=== PATIENT | female | born 1975 | race Caucasian/White ===

== ENCOUNTER 2018-03-19 12:31 | Emergency (ER) | payer MEDICAID ==
[~2018-03-19] VITALS: Wt 78.4 kg
[~2018-03-19 12:31] MED LIST: BACTDS PO; CEPH-443 PO; HYDR-4011 PO; IBUP-1544 PO; PERCOCET PO
[2018-03-19] MEDS ORDERED: IBUPROFEN 600 MG TAB PO ONE (14:30)
[2018-03-19] MEDS ORDERED: IBUP-1542 PO (15:05)
--- NOTE | 2018-03-27 11:45 | ERD ---
ER Documentation Chief Complaint Chief Complaint L knee pain x3d p twist motion: no overt swelling noted. amb w limp HPI Patient is a 42-year-old female who presents ER for concerns of left knee pain for the last day. Patient states that she was walking when she twisted her knee. Patient states ever since twisting her knee she has had pain. Patient states she is having trouble bearing weight to the affected extremity. Patient denies any previous falls or trauma. Patient denies any fevers or chills. ROS All systems reviewed and are negative except as per history of present illness. Medications Home Meds Active Scripts Ibuprofen* (Motrin*) 600 Mg Tab, 600 MG PO Q6, #30 TAB Prov:MANJINDER BAEZA PA-C 03/19/18 Hydrocodone/Acetaminophen ([place] 5-325 Tablet) 1 Each Tablet, 1 TAB PO Q6H PRN for PAIN, #20 TAB Prov:EDGAR BLAKE PA-C 03/04/16 Cephalexin* (Keflex*) 500 Mg Capsule, 500 MG PO QID for 7 Days, CAP Prov:MINGO RODRIGUEZ PA-C 03/11/15 Sulfamethoxazole-Trimethoprim* (Bactrim* DS) 800-160 Mg Tab, 1 TAB PO BID for 7 Days, TAB Prov:MINGO RODRIGUEZ PA-C 03/11/15 Oxycodone Hcl/Acetaminophen (Percocet) 1 Tab Tab, 2 TAB PO Q4H PRN for PAIN LEVEL 6-10, #30 TAB 0 Refills Prov:RODOLFO VARGAS MD 02/23/15 Ibuprofen* (Ibuprofen*) 800 Mg Tab, 800 MG PO Q8, #20 TAB 0 Refills Prov:RODOLFO VARGAS MD 02/23/15 Allergies Allergies: Coded Allergies: No Known Allergy (Unverified , 02/21/15) PMhx/Soc History of Surgery: Yes (2 c-sections) Anesthesia Reaction: No Hx Neurological Disorder: No Hx Respiratory Disorders: No Hx Cardiac Disorders: No Hx Psychiatric Problems: No Hx Miscellaneous Medical Probl: No Hx Alcohol Use: No Hx Substance Use: No Hx Tobacco Use: No FmHx Family History: No diabetes Physical Exam Physical Exam GENERAL: Well-developed, well-nourished male. Appears in no acute distress. HEAD: Normocephalic, atraumatic. EYES: Pupils are equally reactive bilaterally. EOMs grossly intact. No conjunctival erythema. ENT: Moist mucous membranes. No uvula deviation. No kissing tonsils. NECK: Supple. No meningismus. Normal range of motion of the neck. LUNG: Clear to auscultation bilaterally. No rhonchi, wheezing, rales or coarse breath sounds. HEART: Regular rate and rhythm. No murmurs, rubs or gallops. EXTREMITIES: Equal pulses bilaterally. No peripheral clubbing, cyanosis or edema. No unilateral leg swelling. NEUROLOGIC: Alert and oriented. Moving all four extremities without any difficulty. Normal speech. SKIN: Normal color. Warm and dry. No rashes or lesions. LLE: No deformity, erythema, ecchymosis. Mild swelling throughout the knee joint. Decreased range of motion secondary to pain. Tender palpation over the anterior and medial knee. Nontender palpation of the proximal femur. Nontender to palpation of the distal tibia/fibula. No valgus/varus instability. Sensation intact to light touch. Neurovascularly intact. (Able to plantarflex, dorsiflex, jamison foot, invert foot, raise big toe.) 2+ DP and DT pulses. Results 24 hrs Current Medications Medications Dose Sig/Patrice Start Time Status Last (Trade) Ordered Route PRN Stop Time Admin Dose Reason Admin Ibuprofen 600 mg ONCE ONCE 03/19/18 DC 03/19/18 (Motrin) PO 14:30 14:15 03/19/18 14:31 Procedures/MDM ED COURSE: The patient was stable throughout ED course. I kept the patient and/or family informed of laboratory and diagnostic imaging results throughout the ED course. DIAGNOSTIC IMAGING: Read by radiologist. Patient: ORI MORROW : 1975 Age: 42 Sex: F MR #: [id number] DOS: 03/19/18 1410 Ordering MD: MANJINDER BAEZA PA-C Location: [facility] Room/Bed: PROCEDURE: XR Knee 3 Views. CLINICAL INDICATION: Left knee pain and trauma. TECHNIQUE: AP, lateral and tunnel view of the left knee were obtained. The images reviewed on a PACS workstation. COMPARISON: None. FINDINGS: Fracture: None. Destructive lesions: None. Interosseous spaces: Moderate narrowing of the patellofemoral joint compartment. Soft tissues: Scattered heterotopic subcutaneous soft tissue calcifications over the proximal lower leg. Other: None. IMPRESSION: Moderate osteoarthritis of the patellofemoral joint compartment. If further characterization is needed CT or MRI could be helpful. If there is high clinical suspicion for traumatic injury, further evaluation with CT should be considered. RPTAT: AA .Perez Robert MD, MD Date Time Electronically viewed and signed by .Perez Robert MD, MD on 03/19/2018 14:57 .P/ CC: MANJINDER BAEZA PA-C [id number] PROCEDURES: SPLINT APPLICATION: The patient was verbally consented at bedside prior to splint application. Patient was explained the risks, benefits and alternatives to this procedure. The patient was neurovascularly intact prior to and status post application of the splint. The patient tolerated the procedure well with no complications. Splint type: Knee immobilizer Extremity: left knee Indication: moderate osteoarthritis of the patellofemoral joint compartment MEDICAL DECISION MAKING: This is 42-year-old female who presents the ER for concerns of knee pain after twisting it. X-ray imaging was concerning for osteoarthritis. Patient was placed in a knee immobilizer to aid with ambulation.. Patient advised she will need to follow-up with an substance abuse specialist on outpatient basis for further workup of symptoms. Low suspicion for femur fracture, patella fracture, tibial plateau fracture, septic joint, gout, popliteal cyst, prepatellar bursitis, patellofemoral syndrome, osteomyelitis, DVT or compartment syndrome. At this time, unable to rule out any meniscus and knee ligament injuries. PRESCRIPTIONS: ibuprofen DISCHARGE: At this time, patient is stable for discharge and outpatient management. RICE therapy and ROM exercises were advised to avoid stiffness. I have instructed the patient to follow-up with his/her primary care physician in 1-2 days. I have discussed with the patient the possibility of needing to see an substance abuse specialist for further workup and imaging if the pain persists. I have instruct ed the patient to promptly return to the ER for any new or worsening symptoms including increased pain, swelling, redness, warmth or fever. The patient and/or family expressed understanding of and agreement with this plan. All questions were answered. Home care instructions were provided. Disclaimer: Inadvertent spelling and grammatical errors are likely due to EHR/dictation software use and do not reflect on the overall quality of patient care. Also, please note that the electronic time recorded on this note does not necessarily reflect the actual time of the patient encounter. Departure Diagnosis: Primary Impression: Osteoarthritis Osteoarthritis location: unspecified site Osteoarthritis type: unspecified Qualified Codes: M19.90 - Unspecified osteoarthritis, unspecified site Additional Impression: Knee pain Chronicity: acute Laterality: left Qualified Codes: M25.562 - Pain in left knee Condition: Stable Patient Instructions: Knee Pain, Uncertain Cause Referrals: [facility] YOU HAVE RECEIVED A MEDICAL SCREENING EXAM AND THE RESULTS INDICATE THAT YOU DO NOT HAVE A CONDITION THAT REQUIRES URGENT TREATMENT IN THE EMERGENCY DEPARTMENT. FURTHER EVALUATION AND TREATMENT OF YOUR CONDITION CAN WAIT UNTIL YOU ARE SEEN IN YOUR DOCTORS OFFICE WITHIN THE NEXT 1-2 DAYS. IT IS YOUR RESPONSIBILITY TO MAKE AN APPOINTMENT FOR FOLOW-UP CARE. IF YOU HAVE A PRIMARY DOCTOR --you should call your primary doctor and schedule an appointment IF YOU DO NOT HAVE A PRIMARY DOCTOR YOU CAN CALL OUR PHYSICIAN REFERRAL HOTLINE AT IF YOU CAN NOT AFFORD TO SEE A PHYSICIAN YOU CAN CHOSE FROM THE FOLLOWING COUNTS INCLUDE 234 BEDS AT THE [facility] [address] [facility]. [facility] [address] [facility]. [facility] [address] [facility] [facility] [address] [facility]. [facility] [address] [facility]. [facility]. [address] [facility] YOU HAVE RECEIVED A MEDICAL SCREENING EXAM AND THE RESULTS INDICATE THAT YOU DO NOT HAVE A CONDITION THAT REQUIRES URGENT TREATMENT IN THE EMERGENCY DEPARTMENT. FURTHER EVALUATION AND TREATMENT OF YOUR CONDITION CAN WAIT UNTIL YOU ARE SEEN IN YOUR DOCTORS OFFICE WITHIN THE NEXT 1-2 DAYS. IT IS YOUR RESPONSIBILITY TO MAKE AN APPOINTMENT FOR FOLOW-UP CARE. IF YOU HAVE A PRIMARY DOCTOR --you should call your primary doctor and schedule and appointment IF YOU DO NOT HAVE A PRIMARY DOCTOR YOU CAN CALL OUR PHYSICIAN REFERRAL HOTLINE AT . IF YOU CAN NOT AFFORD TO SEE A PHYSICIAN YOU CAN CHOSE FROM THE FOLLOWING [facility] INSTITUTIONS: [facility] [address] [place] [address] [facility] [address] [place] [address] [facility] + [facility] [address] [place] [address] [facility] Hours: Mon-Fri 9:00 AM - 5:00 PM Additional Instructions: Follow-up with an substance abuse specialist on outpatient basis. See referral information. Take ibuprofen for pain. Call your primary care doctor TOMORROW for an appointment during the next 1-2 days.See the doctor sooner or return here if your condition worsens before your appointment time. MANJINDER BAEZA PA-C Mar 27, 2018 11:45
== END 2018-03-19 15:15 | disposition home or self-care (01) ==
LOC: FTE 12:31
DX: M19.90 Unspecified osteoarthritis, unspecified site (principal)
CPT/HCPCS: 73562; Z7610